=== PATIENT | male | born 1970 | race Caucasian/White ===

== ENCOUNTER → 2023-12-18 18:00 | Outpatient (REF) | payer BC, SELFPAY | LOC: MRI 18:00 | PROVIDERS: ATTENDING PHYSICIAN Physician Assistant Surgical; FAMILY PHYSICIAN Family Medicine | DX: M25.512 Pain in left shoulder (principal) | CPT/HCPCS: 73221 ==

== ENCOUNTER 2024-07-02 20:13 | Emergency (ER) | payer BC, SELFPAY ==
[2024-07-02 20:16] VITALS: BP 159/103
[2024-07-02 22:38] VITALS: BP 145/89
--- NOTE | 2024-07-02 23:22 | ED.MUSCINJ ---
HPI-Injury
General
Chief Complaint: Musculo-Skeletal Complaint
Source: patient
Exam Limitations: none
Time Seen by Provider: 07/02/24 20:47
Nursing documentation reviewed up to this point in time: agreed with
History of Present Illness-Injury
Is this injury a work related problem?: No
Is pt an associate of [facility]/[place]?: No
Initial Injury comments:
Patient states he was playing pickle ball. Stepped back on to right foot and felt a pop in right calf. States he was initially able to walk but calf has rapidly become more swollen and painful. Now unable to apply weight to leg. Brought to ED by
spouse for eval.
Past History
Past History
ED Past Medical History: Hypercholesterolemia
Review of Systems
Review of Systems
Allergies reviewed?: Yes
All Other Systems: ROS reviewed and negative except as documented in HPI and ROS
Constitutional: Reports no symptoms
EENT: Reports no symptoms
Respiratory: Reports no symptoms
Cardiac: Reports no symptoms
ABD/GI: Reports no symptoms
Musculoskeletal: Reports muscle pain (Pain and swellingn to right calf.)
Skin: Reports no symptoms
Neurological: Reports no symptoms
Psychiatric: Reports no symptoms
Musculoskeletal Injury Exam
Musculoskeletal Injury Exam
Right Calf:
Pain with Movement?: Moderate
Tender to palpation?: Severe
Soft tissue swelling?: Severe
External deformity and angulation?: None
Joint effusion?: None
Contusion?: None
Hematoma-local bleeding into tissue?: Severe
Strain- Sprain- Tear (Connective tissue injury)?: Severe
Crepitus with movement?: No
Joint instability?: No
Malalignment/deformity?: No
Range of motion: Limited
Distal skin color and temperature: normal-warm & good color
Capillary Refill: normal
Normal distal neurovascular exam?: Yes
Peripheral Pulses: posterior tibial (right): 3+ and dorsalis pedis (right): 3+
Phy Exam
General Physical Exam
General Presentation: well appearing and mild distress
General Skin: warm and dry
General Habitus: normal
General Mental: alert
General Hydration: appears well hydrated
Musculoskeletal Exam
Musculoskeletal Exam: neuro vasc intact
Skin Exam
Skin Exam: normal color, warm/dry and no rash
Psychiatric Exam
Psychiatric Exam: normal mood/affect
*Critical Care Note
Total Time (30-74mins, 75-104mins- exclusive of procedures): Not Applicable
Update Note
Update Note:
RIght calf taugh, swollen, painful. Neurovascularly intact. Swelling confinded to calf muscle. Limited ROM to foot/ankle. Concern for compartment syndrome. Dr. Bello notified and into see patient. She feels that this is localized large
hematoma and is not a compartment syndrome. He was placed in an orthopedic boot by Dr. Bello and discharged home, will follow up in office.
ED Attending Note
-
Portions of this chart may have been created with voice recognition software.� Occasional wrong word or��sound alike� substitutions may have occurred due to the inherent limitations of voice recognition software.
Discharge Plan
Departure
Patient Disposition: Home (Routine Discharge)
Date of Disposition: 07/02/24
Time of Disposition: 22:02
Patient with high blood pressure during this ER visit?: No
Condition: Good
Covid-19: Not Applicable
Discharge Problem:
Muscle tear
Instructions: How to Use Crutches, Lower Extremity Muscle Strain, Using Cold for Pain
Prescriptions:
New
acetaminophen-codeine 300-30 mg tablet
1 tab PO Q4H PRN (Reason: Pain) Qty: 10 0RF
Referrals:
Lien Bello I., DO [Active] -
Saman Powell MD [Family Provider] -
Activity Restrictions/Additional Instructions:
No NSAID (ibuprofen, naproxen, aspirin) use. Keep leg elevated. Apply ice 15-20 minutes at a time, 4-5 times daily. Return to the emergency department for any changes in/worsening of your symptoms.
Interventions
Interventions:
*Risk Screen - Suicide Last Done: 07/02/24 20:16
*General Assessment Last Done: 07/02/24 20:55
*Neglect/Abuse Screening Last Done: 07/02/24 20:55
*Nursing Disposition Last Done: 07/02/24 22:39
ED-Musculoskeletal Assessment Last Done: 07/02/24 20:55
Discharge Date and Time
Discharge Date/Time: 07/02/24 22:40
Print Language: ROMANSH
== END 2024-07-02 22:40 | disposition home or self-care (01) ==
LOC: EMR 20:13
PROVIDERS: EMERGENCY PHYSICIAN Student in an Organized Health Care Education/Training Program; FAMILY PHYSICIAN Family Medicine
DX: S86.911A Strain of unspecified muscle(s) and tendon(s) at lower leg level, right leg, initial encounter (principal); X58.XXXA Exposure to other specified factors, initial encounter; Y93.73 Activity, racquet and hand sports; E78.00 Pure hypercholesterolemia, unspecified
CPT/HCPCS: 99282